=== PATIENT | female | born 1975 | race Caucasian/White ===

== ENCOUNTER 2024-04-08 11:37 | Outpatient (AMB) | payer OTHER, SELFPAY ==
--- NOTE | 2024-04-08 11:41 | MHC.OFFVIS ---
Vital Signs 04/08/24 11:48 Height 5 ft 3 in Weight 155 lb 3.287 oz BMI 27.5 BP 120/70 Blood Pressure Location Rt brachial Position Sitting Pulse 58 Pulse Source Pulse Oximeter Pulse Oximetry (%) 99 Oxygen Delivery Method Room Air Intake Visit Reasons: Colonoscopy Screening Intake Note: Relevant Flags or Indicators ? 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 N Alicia presents in office today for a scheduled colonoscopy consultation. Initial colo, routine. CC; Pt is new to [facility] [place] [facility]. No previous hx on file outside of referral. No recent labs or diagnostics. Relevant GI Sx as reported per pt? None ? Hx of any recent surgeries? None Allergies No Known Allergies Allergy (Verified 04/08/24 11:41) HPI HPI Colonoscopy Screening: Details: 48 year old? female with no significant past medical history is here today for pre colonoscopy screening.? Patient was sent to us by her PCP.? This is her first colonoscopy screening.? Patient denies any gastrointestinal symptoms in the past or at present.? Denies any personal or family history of gastrointestinal disease, colon polyps, or CRC.? Denies history of difficulty with sedation or anesthesia in the past.? Negative for history of sleep apnea.? Denies any history of cardiac, renal, pulmonary, or hepatic disease.?? No history of infectious? diseases like hepatitis A, B, C, HIV or tuberculosis.? Patient is not on any anticoagulation [facility] Medical History Chronic neck pain Surgical History History of colposcopy H/O breast surgery (~04/25/16) Review of Systems Const Denies weight gain and Denies weight loss ENT Reports no additional complaints, Denies dysphagia and Denies odynophagia Card Reports no additional complaints Resp Reports no additional complaints GI Denies abdominal pain, Denies belching, Denies melena, Denies bloating, Denies change in bowel habits, Denies dysphagia, Denies excessive flatus, Denies dyspepsia, Denies heartburn, Denies diarrhea, Denies loose stools, Denies nausea, Denies odynophagia and Denies vomiting Musc Reports no additional complaints Neuro Reports no additional complaints Psych Reports no additional complaints Endo Reports no additional complaints Physical Exam Vital Signs: Last Vital Signs Pulse 58 04/08/24 11:48 BP 120/70 04/08/24 11:48 Pulse Ox 99 04/08/24 11:48 Oxygen Delivery Method Room Air 04/08/24 11:48 BMI result Body Mass Index 27.5 Const General: healthy appearing, no acute distress and well developed Nutritional Appearance: well nourished Orientation/consciousness: patient oriented x3 Resp Effort & Inspection: normal respiratory effort, able to speak in complete sentences, no tracheal deviation and symmetric chest movement Auscultation: clear to auscultation bilaterally Cardio Rate: regular rate GI Inspection: Yes normal to inspection and No distended Palpation (GI): Soft to palpation, not firm, nontender and No hepatosplenomegaly present Auscultation: normal bowel sounds General: Yes no CVA tenderness Back/Spine/Pelvis Back: no CVA tenderness Skin General skin exam: elasticity normal, turgor normal and dry skin Neuro General: patient oriented x3 Psych Appearance: grossly normal Mental Status: mental status grossly normal Assessment & Plan Assessment & Plan (1) Screen for colon cancer: Code(s): Z12.11 - Encounter for screening for malignant neoplasm of colon Plan Patient denies any GI, cardiac or respiratory symptoms.? Denies any issues with anesthesia in the past.? Denies any history of sleep apnea.? No history infectious diseases in the past or present.? Not on any anticoagulation therapy.? No family or personal history of colon cancer or polyps.? Patient denies melena, hematochezia, unintentional weight loss or ribbon like stools.? Discussed at length the pre-procedure,? prep, diet & medications as well as what to expect prior, during and after the procedure.?? Stressed the importance of good bowel prep.? Recommended the use of Vaseline or Calmoseptine OTC & baby wipes with bowel movements to promote comfort.? ?Patient verbalizes understanding and agrees to plan of care.? She was given the opportunity to ask questions and all questions answered.? We will see her after the procedure.? Medications: New bisacodyl (Dulcolax (bisacodyl)) take 4 tabs at noon the day before your colonoscopy 20 mg (4 x 5 mg) PO ONCE 1 day 4 tabs 0RF constipation Z12.11 - Encounter for screening for malignant neoplasm of colon polyethylene glycol 3350 (Miralax) As directed by gastroenterology department at [facility] 238 grams PO ONCE 238 grams 0RF Z12.11 - Encounter for screening for malignant neoplasm of colon Coding Level of Care Code New Pt Level 3 (19079) Diagnoses Screen for colon cancer Z12.11 Time Spent (min) 40 Comment 30 minutes spent with patient and additional 10 minutes spent reviewing her records
[2024-04-08 11:48] VITALS: BP 120/70; PULSE 58; O2SAT 99; BMI 27.5
== END 2024-04-08 12:47 | disposition home or self-care (01) ==
PROVIDERS: PCP Physician Assistant Medical; Visit Provider Nurse Practitioner Family
DX: Z01.818 Encounter for other preprocedural examination (principal); Z12.11 Encounter for screening for malignant neoplasm of colon
CPT/HCPCS: S0285

== ENCOUNTER 2024-04-23 08:03 | Day surgery (SDC) | payer OTHER, SELFPAY ==
--- NOTE | 2024-04-22 09:32 | P.CONAN_ITS ---
Documented by User: Flower Jade NP 04/22/24 09:32 HPI - Anesthesia Eval Consult details Narrative: 48yo F for Colonoscopy [facility] Past Medical History Medical History Chronic neck pain Surgical History Surgical History History of colposcopy H/O breast surgery (~04/25/16) Social History Social History Are you a primary attending ambulatory care to a significant other at home: No Do you presently have visiting nurse or other home services: No Patient Tobacco Use Status: Never used Tobacco Have you been hit, kicked, punched, or otherwise hurt by someone within the past year? If so, by whom?: No Are you DNR?: No Advance Directives: No Advance Directives Information Provided: Yes Recently lost weight without trying: No Nutrition Risks: No Nutritional Risk FDLMP: 2 weeks ago Meds Allergies Allergy/AdvReac Type Severity Reaction Status Date / Time No Known Allergies Allergy Verified 04/23/24 08:34 Home Medications ?Medication ?Instructions ?Recorded ?Confirmed ?Last Taken ?Type acetaminophen 500 mg capsule 500 mg PO Q6H PRN Pain (Scale 04/02/24 04/23/24 Unknown History Score 1-3) norgestimate 0.25 mg-ethinyl 1 tab PO DAILY 04/02/24 04/23/24 Unknown History estradiol 35 mcg tablet (Sprintec (28)) ashwagandha root extract 300 mg 1,000 mg PO DAILY 04/08/24 04/23/24 Unknown History capsule magnesium glycinate 200 mg PO DAILY 04/08/24 04/23/24 Unknown History Assessment and Plan Assessment Anesthesia Assessment: Chart Reviewed Documented by User: Nancy Barth MD 04/23/24 08:49 [facility] Past Medical History Medical History Chronic neck pain Family History Family history of problems with anesthesia: No Surgical History Surgical History History of colposcopy H/O breast surgery (~04/25/16) History of Problems with Anesthesia: No Social History Social History Are you a primary attending ambulatory care to a significant other at home: No Do you presently have visiting nurse or other home services: No Patient Tobacco Use Status: Never used Tobacco Have you been hit, kicked, punched, or otherwise hurt by someone within the past year? If so, by whom?: No Are you DNR?: No Advance Directives: No Advance Directives Information Provided: Yes Recently lost weight without trying: No Nutrition Risks: No Nutritional Risk FDLMP: 2 weeks ago Meds Allergies Allergy/AdvReac Type Severity Reaction Status Date / Time No Known Allergies Allergy Verified 04/23/24 08:34 Home Medications ?Medication ?Instructions ?Recorded ?Confirmed ?Last Taken ?Type acetaminophen 500 mg capsule 500 mg PO Q6H PRN Pain (Scale 04/02/24 04/23/24 U nknown History Score 1-3) norgestimate 0.25 mg-ethinyl 1 tab PO DAILY 04/02/24 04/23/24 Unknown History estradiol 35 mcg tablet (Sprintec (28)) lyndadha root extract 300 mg 1,000 mg PO DAILY 04/08/24 04/23/24 Unknown History capsule magnesium glycinate 200 mg PO DAILY 04/08/24 04/23/24 Unknown History Exam Airway Mallampati Class: II TM Dist: >3cm Neck ROM: Full Heart: rrr Lungs: cta Assessment and Plan Assessment Anesthesia Assessment: Anesthesia Plan Discussed Final Anesthetic Review Family History of Problems with Anesthesia: No History of Problems with Anesthesia: No NPO: Yes ASA Class: II Final Preanesthetic Review: No Changes in Pt Med Stat, Meds/Allgs Chart Reviewed, Consent Obtained/Reviewed and Anes Risks/Benef Reviewed Patient Risk: Low Procedure Risk: Low Anesthetic Plan Anesthetic Plan: MAC: Disposition: Standard PACU
[2024-04-23 08:26] VITALS: BMI 26.9
[2024-04-23] MEDS: Lactated Ringers 1,000 ML 100 ML IVCONT (08:33)
[2024-04-23 08:35] LABS: UPreg QC Valid YES; Urine Pregnancy NEGATIVE (NEGATIVE)
--- NOTE | 2024-04-23 08:35 | MHC.SHP ---
Pre-Procedural Eval Section A - 24 Hr Update-Section A only Date of Service: 04/23/24 Section B - Complete if H&P > 30 days Chief Complaint: Encounter for screening for malignant neoplasm of Details of Present Illness: Chronic neck pain Surgical History History of colposcopy H/O breast surgery (~04/25/16) Present Medications: see Short Stay Collaborative assessment Allergies: Allergies Allergy/AdvReac Type Severity Reaction Status Date / Time No Known Allergies Allergy Verified 04/23/24 08:34 Review of Systems Review of Systems Comment: Ten point ROS negative Exam Exam Comment: Gen appear: No acute distress HEENT: no icterus Chest: No overt resp distress Abd: soft, nontender, nondistended Psych: Stable affect, answering questions appropriately Neuro: A/Ox3 noted to move all extremities spontaneously Ext: no peripheral edema Plan Diagnosis/Plan: Unchanged I have reviewed the history and physical and performed a pertinent physical examination on my patient. No changes have occurred unless specified. Time Spent With Patient Time: Total time managing care of this patient today ____ minutes.
[2024-04-23 08:37] VITALS: BP 128/95; PULSE 65; RESP 18; TEMP 36.7; O2SAT 99
[2024-04-23 09:58] VITALS: BP 96/44; PULSE 57; RESP 16; TEMP 36.6; O2SAT 98
[2024-04-23 10:13] VITALS: BP 114/55; PULSE 53; RESP 16; TEMP 37.1; O2SAT 99
--- NOTE | 2024-04-23 11:51 | P.OPN-COLO_ITS ---
Colonoscopy Operative Note Operative Note Date of Service: 04/23/24 Narrative: Procedure: Colonoscopy Indication: Screening Endoscopist: Elena Martin MD Anesthesia Provider: Ana Gomez CRNA Anesthesia type: MAC Instrument: Olympus [id number]-[id number] Consent: Indication, risks vs benefits, and alternatives were discussed with the patient who gave written informed consent to proceed. EKG, pulse, pulse oximetry and blood pressure were monitored throughout the procedure. Please see anesthesia flowsheet. Procedure: The patient was brought to the procedure room and placed in the left lateral decubitus position. IV medications were administered by the anesthesia provider in attendance. A digital rectal exam was performed which was normal. A distal attachment cap was affixed to the tip of the colonoscope which was then inserted through the anus and advanced through the colon to the cecum at 75 cm,and terminal ileum. Appendiceal orifice and ileocecal valve were identified. Mucosa was carefully examined under high definition white light as the instrument was slowly withdrawn in a retrograde panoramic fashion. Retroflexion was performed in rectum. The procedure was not difficult. There were no immediate obvious complications. The quality of the prep was BBPS: 3+2+3 = adequate Withdrawal time 10 minutes. Limitations: No limitations. Findings: Mucosa: Normal to cecum and terminal ileum. Protruding lesions: * 1 sessile polyp of size 6 mm in rectum. Cold snare polypectomy was performed. The polyp was completely removed and retrieved. * Medium internal hemorrhoids without stigmata of recent bleeding. Impression: 1. Normal colon and terminal ileum mucosa 2. Total of 1 polyp removed 3. Internal hemorrhoids Recommendations: - Follow path results. - Repeat colonoscopy in 5-7 years depending on results of the polyp.
== END 2024-04-23 10:38 | disposition home or self-care (01) ==
PROVIDERS: Nurse Practitioner; PCP Physician Assistant Medical; Visit Provider Internal Medicine
PROC: 0DJD8ZZ Inspection of Lower Intestinal Tract, Via Natural or Artificial Opening Endoscopic (ICD-10-PCS; CPT 45378; principal; 2024-04-23 09:20)
DX: Z12.11 Encounter for screening for malignant neoplasm of colon (principal); D12.8 Benign neoplasm of rectum; K64.8 Other hemorrhoids; G89.29 Other chronic pain; M54.2 Cervicalgia; Z79.899 Other long term (current) drug therapy; Z98.890 Other specified postprocedural states
CPT/HCPCS: 45385; 81025; 88305; J2003; J2704